=== PATIENT | male | born 1990 | race Caucasian/White ===

== ENCOUNTER 2017-01-10 01:51 | Emergency (ER) | payer BC ==
[2017-01-10] MEDS ORDERED: Ketorolac 30 MG/ML SDV IVPUSH ONE (02:06)
[2017-01-10] MEDS ORDERED: Sodium Chloride 0.9% 1,000 ML IV ONE (02:06)
[2017-01-10] MEDS ORDERED: Ondansetron 4 MG/2 ML SDV IVPUSH ONE (02:06)
--- NOTE | 2017-01-10 02:10 | EDM.PDOC ---
ED HPI GENERAL MEDICAL PROBLEM - General Chief Complaint: Back Pain or Injury Stated Complaint: BACK PAIN Time Seen by Provider: 01/10/17 02:02 - History of Present Illness INITIAL COMMENTS - FREE TEXT/NARRATIVE: HISTORY AND PHYSICAL: History of present illness: Patient is 26 male presents with concern of acute left flank pain patient associated nausea no vomiting he denies trauma denies history of similar prior denies history of urolithiasis UTI or back pain Review of systems: As per history of present illness and below otherwise all systems reviewed and negative. Past medical history: As per history of present illness and as reviewed below otherwise noncontributory. Surgical history: As per history of present illness and as reviewed below otherwise noncontributory. Social history: No reported history of drug or alcohol abuse. Family history: As per history of present illness and as reviewed below otherwise noncontributory. Physical exam: HEENT: Atraumatic, normocephalic, pupils reactive, negative for conjunctival pallor or scleral icterus, mucous membranes moist, throat clear, neck supple, nontender, trachea midline. Lungs: Clear to auscultation, breath sounds equal bilaterally, chest nontender. Heart: S1S2, regular, negative for clicks, rubs, or JVD. Abdomen: Soft, nondistended, nontender. Negative for masses or hepatosplenomegaly. Left sided costovertebral tenderness. Pelvis: Stable nontender. Genitourinary: Deferred. Rectal: Deferred. Extremities: Atraumatic, negative for cords or calf pain. Neurovascular unremarkable. Neuro: Awake, alert, oriented. Cranial nerves II through XII unremarkable. Cerebellum unremarkable. Motor and sensory unremarkable throughout. Exam nonfocal. Diagnostics: CBC CMP UA urine culture CT abdomen and pelvis Therapeutics: Will saline 1 L bolus Toradol 30 mg IV Zofran 4 mg IV Impression: #1 acute left flank pain Definitive disposition and diagnosis as appropriate pending reevaluation and review of above. back Pain Score (Numeric/FACES): 8 - Related Data Allergies Allergy/AdvReac Type Severity Reaction Status Date / Time No Known Allergies Allergy Verified 01/10/17 02:01 Home Meds: Home Meds Lisinopril/Hydrochlorothiazide [Lisinopril-Hctz 10-12.5 mg Tab] 1 tab PO DAILY 01/10/17 [History] Past Medical History - Past Health History Medical/Surgical History: Denies Medical/Surgical History Social & Family History - Alcohol Use Days Per Week of Alcohol Use: 0 - Recreational Drug Use Recreational Drug Use: No ED ROS GENERAL - Review of Systems Review Of Systems: ROS reveals no pertinent complaints other than HPI. ED EXAM, GENERAL - Physical Exam Exam: See Below (see dictation) Course - Vital Signs Last Recorded V/S: Last Vital Signs Temp 36.4 C 01/10/17 01:55 Pulse 113 H 01/10/17 01:55 Resp 18 01/10/17 01:55 BP 181/93 H 01/10/17 01:55 Pulse Ox 99 01/10/17 01:55 - Orders/Labs/Meds Orders: Active Orders 24 hr Category Date Time Status Abdomen Pelvis wo Cont [CT] Stat Exams 01/10/17 02:08 Taken CULTURE URINE [RM] Stat Lab 01/10/17 02:10 Received Labs: Laboratory Tests 01/10/17 01/10/17 01/10/17 Range/Units 02:10 02:25 02:25 WBC 7.87 (4.0-11.0) K/uL RBC 4.84 (4.50-5.90) M/uL Hgb 14.8 (13.0-17.0) g/dL Hct 44.0 (38.0-50.0) % MCV 90.9 (80.0-98.0) fL MCH 30.6 (27.0-32.0) pg MCHC 33.6 (31.0-37.0) g/dL RDW Std Deviation 39.7 (28.0-62.0) fl RDW Coeff of Guy 12 (11.0-15.0) % Plt Count 208 (150-400) K/uL MPV 12.20 H (7.40-12.00) fL Neut % (Auto) 67.9 (48.0-80.0) % Lymph % (Auto) 20.7 (16.0-40.0) % [place] % (Auto) 9.5 (0.0-15.0) % Eos % (Auto) 1.8 (0.0-7.0) % Baso % (Auto) 0.1 (0.0-1.5) % Neut # (Auto) 5.3 (1.4-5.7) K/uL Lymph # (Auto) 1.6 (0.6-2.4) K/uL [place] # (Auto) 0.8 (0.0-0.8) K/uL Eos # (Auto) 0.1 (0.0-0.7) K/uL Baso # (Auto) 0.0 (0.0-0.1) K/uL Sodium 139 (136-146) mmol/L Potassium 3.3 L (3.5-5.1) mmol/L Chloride 102 (98-110) mmol/L Carbon Dioxide 24 (21-31) mmol/L BUN 12 (6.0-23.0) mg/dL Creatinine 1.1 (0.6-1.5) mg/dL Est Cr Clr Drug Dosing TNP Estimated GFR (MDRD) > 60.0 ml/min Glucose 123 H (60-110) mg/dL Calcium 9.7 (8.8-10.8) mg/dL Total Bilirubin 0.8 (0.1-1.5) mg/dL AST 21 (5-40) IU/L ALT 27 (8-54) IU/L Alkaline Phosphatase 117 (40-150) Total Protein 7.3 (6.0-8.0) g/dL Albumin 4.1 (3.5-5.0) g/dL Globulin 3.2 (2.0-3.5) g/dL Albumin/Globulin Ratio 1.3 (1.3-2.8) Urine Color YELLOW Urine Appearance CLEAR Urine pH 6.0 (5.0-8.0) Ur Specific [place] 1.020 (1.001-1.035) Urine Protein NEGATIVE (NEGATIVE) mg/dL Urine Glucose (UA) NEGATIVE (NEGATIVE) mg/dL Urine Ketones NEGATIVE (NEGATIVE) mg/dL Urine Occult Blood NEGATIVE (NEGATIVE) Urine Nitrite NEGATIVE (NEGATIVE) Urine Bilirubin NEGATIVE (NEGATIVE) Urine Urobilinogen 0.2 (<2.0) EU/dL Ur Leukocyte Esterase NEGATIVE (NEGATIVE) Urine RBC NONE SEEN (0-2/HPF) Urine WBC 0-1 (0-5/HPF) Ur Epithelial Cells NOT SEEN (NONE-FEW) Urine Bacteria RARE (NEGATIVE) Meds: Medications Discontinued Medications Generic Name Dose Route Start Last Admin Trade Name Freq PRN Reason Stop Dose Admin Sodium Chloride 1,000 mls @ 999 mls/hr 01/10/17 02:06 01/10/17 02:26 Normal Saline IV 01/10/17 03:06 999 mls/hr STAT ONE Administration Ketorolac Tromethamine 30 mg 01/10/17 02:06 01/10/17 02:37 Toradol IVPUSH 01/10/17 02:07 30 mg ONETIME ONE Administration Ondansetron HCl 4 mg 01/10/17 02:06 01/10/17 02:35 Zofran IVPUSH 01/10/17 02:07 4 mg ONETIME ONE Administration Departure - Departure Time of Disposition: 03:42 Disposition: Home, Self-Care 01 Condition: Good Clinical Impression: Flank pain - Discharge Information Referrals: Jeevan Henry MD [Primary Care Provider] - Forms: ED Department Discharge Additional Instructions: The following information is given to patients seen in the emergency department who are being discharged to home. This information is to outline your options for follow-up care. We provide all patients seen in our emergency department with a follow-up referral. The need for follow-up, as well as the timing and circumstances, are variable depending upon the specifics of your emergency department visit. If you don't have a primary care physician on staff, we will provide you with a referral. We always advise you to contact your personal physician following an emergency department visit to inform them of the circumstance of the visit and for follow-up with them and/or the need for any referrals to a consulting specialist. The emergency department will also refer you to a specialist when appropriate. This referral assures that you have the opportunity for followup care with a specialist. All of these measure are taken in an effort to provide you with optimal care, which includes your followup. Under all circumstances we always encourage you to contact your private physician who remains a resource for coordinating your care. When calling for followup care, please make the office aware that this follow-up is from your recent emergency room visit. If for any reason you are refused follow-up, please contact the [facility] emergency department at and asked to speak to the emergency department charge nurse. Ultram as prescribed follow-up primary medical doctor wanted today's return as needed as discussed - My Orders Last 24 Hours: My Active Orders 01/10/17 02:08 Abdomen Pelvis wo Cont [CT] Stat 01/10/17 02:10 CULTURE URINE [RM] Stat - Assessment/Plan Last 24 Hours: My Active Orders 01/10/17 02:08 Abdomen Pelvis wo Cont [CT] Stat 01/10/17 02:10 CULTURE URINE [RM] Stat
[2017-01-10 03:03] LABS: CHLORIDE,CL 102 mmol/L (98-110); SODIUM,NA 139 mmol/L (136-146)
[2017-01-10 06:29] VITALS: BP 140/73
--- NOTE | 2017-01-10 15:29 | CT ---
EXAM DATE: 01/10/17 PATIENT'S AGE: 26 Patient: TALAT GREEN Facility: [place], [place] Site . Site : 1990 Study: CT Abdomen/Pelvis WO CONT [id number]/28/2017 3:09:46 AM Ordering Physician: Akil Rascon Final Report: INDICATION: Sudden onset of back pain. TECHNIQUE: CT abdomen and pelvis without contrast. COMPARISON: None. FINDINGS: Lower chest: Unremarkable. Liver: Unremarkable. Spleen: Unremarkable. Pancreas: Unremarkable. Gallbladder and bile ducts: Unremarkable. Kidneys: Unremarkable. No kidney or ureteral stones and no hydronephrosis. Adrenal glands: Unremarkable. GI tract: Unremarkable. Appendix is normal. No free air or free fluid. Vascular structures: Unremarkable. Lymph nodes: Unremarkable. Pelvic Organs: Unremarkable. Bones: No acute abnormality. IMPRESSION: No acute intra-abdominal or pelvic abnormality. Dictated by Raj Myers MD @ 01/10/2017 3:26:23 AM Dictated by: Raj Myers MD @ 01/10/2017 03:26:30 (Electronic Signature) Report Signed by Proxy. STAT[facility] HOSPITALGeovanna
== END 2017-01-10 03:50 | disposition home or self-care (01) ==
LOC: MW.ED 01:51
DX: R10.9 Unspecified abdominal pain (principal); Z79.899 Other long term (current) drug therapy
CPT/HCPCS: 36415; 74176; 80053; 81001; 85025; 87086; 96361; 96374; 96375; 99284; J1885; J2405; J7040

== ENCOUNTER 2020-04-01 07:20 | Emergency (ER) | payer SELFPAY ==
[2020-04-01] MEDS ORDERED: Sodium Chloride 0.9% 10 ML Syringe FLUSH PRN (07:48)
[2020-04-01] MEDS ORDERED: Sodium Chloride 0.9% 2.5 ML Syringe FLUSH PRN (07:48)
[2020-04-01] MEDS ORDERED: Lactated Ringers 1,000 ML IV ONE (07:48)
--- NOTE | 2020-04-01 07:50 | EDM.PDOC ---
ED HPI GENERAL MEDICAL PROBLEM - General Chief Complaint: Abdominal Pain Stated Complaint: ABDOMINAL PAIN, HIGH BLOOD PRESSURE Time Seen by Provider: 04/01/20 07:21 Source of Information: Reports: Patient, Old Records History Limitations: Reports: No Limitations - History of Present Illness INITIAL COMMENTS - FREE TEXT/NARRATIVE: This is a very pleasant 29-year-old male with a past medical history of hypertension presenting with abdominal pain. Patient reports a 4-day history of intermittent epigastric abdominal pain described as "cramping". This started last on the same day that his father . The patient is concerned that this may be due to stress. He states the pain is intermittent, does not radiate. He has never had this type of pain in the past. He denies any nausea, vomiting, hematemesis, fever, dysuria, urinary frequency, hematuria, diarrhea, or bloody stools. No prior history of gastritis, peptic ulcer disease, pancreatitis, liver disease, or biliary disease. Denies any chest discomfort or shortness of breath. ROS: A 10-point review of systems was negative, except as noted in the HPI (or in the ROS section of this note). Past medical history: Reviewed, no additional pertinent history. Surgical history: Reviewed in system, no additional pertinent history. Social history: Reviewed in system, no additional pertinent history. Family history: Reviewed in system, no additional pertinent history. PHYSICAL EXAM Vital signs reviewed. Nursing notes reviewed. Constitutional: Awake, alert, non-distressed. Head: Normocephalic, atraumatic. Eyes: EOMI, conjunctiva normal, no discharge, no scleral icterus. Ears, Nose, Throat: External ears and nose normal, moist oral mucosa. Cardiovascular: 2+ radial pulse, capillary refill less than 2 seconds. Pulmonary: normal work of breathing, no accessory muscle use. Abdomen/GI: Soft, mild epigastric tenderness, nondistended, no guarding or rigidity, no masses. Musculoskeletal: No deformities. Integumentary: Appropriate color for ethnicity, warm, dry, no pallor or jaundice, no rash. Neurologic: Alert, answering questions appropriately, normal speech, no facial droop, moving all extremities well. Psychiatric: Appropriate mood and affect, normal thought process. This patient was seen and evaluated during the 2019 SARS-CoV-2 novel coronavirus pandemic period. Community viral transmission is ongoing at time of this encounter and the emergency department is operating under pandemic response procedures. - Related Data Allergies Allergy/AdvReac Type Severity Reaction Status Date / Time No Known Allergies Allergy Verified 04/01/20 07:40 Home Meds: Home Meds Lisinopril/Hydrochlorothiazide [Lisinopril-Hctz 10-12.5 mg Tab] 1 tab PO DAILY 01/10/17 [History] Past Medical History - Past Health History Medical/Surgical History: Denies Medical/Surgical History Cardiovascular History: Reports: Hypertension Social & Family History - Family History Family Medical History: No Pertinent Family History ED ROS GENERAL - Review of Systems Review Of Systems: See Below ED EXAM, GI/ABD - Physical Exam Exam: See Below #1 Interpretation EKG Interpretation Comments: 12-Lead ECG Interpretation Acquired: 7:43 AM Rhythm: Sinus tachycardia Rate: 105 bpm Rachel: Normal Intervals: Normal Ectopy: None RV Strain: No obvious RV strain pattern. ST Segments/T-Waves: Very slight ST segment depression in leads I, 2, aVF, less than 1 mm, nondiagnostic. Acute Ischemic Changes: None apparent Interpretation: No STEMI Compared to November 2013, no marked change. Course - Vital Signs Text/Narrative:: Differential diagnosis includes but is not limited to: Gastritis, peptic ulcer disease, perforated viscus, pancreatitis, hepatitis, cholecystitis, biliary colic, less likely acute coronary syndrome, and many others. 818: Very mild epigastric tenderness. No peritoneal signs including guarding or rigidity. Low suspicion for perforation or intra-abdominal surgical emergency at this point. I am suspicious for gastritis. Will administer a GI cocktail an d famotidine, obtain some labs, and reevaluate. If the patient is pain-free, we may not need to obtain an imaging study. If his pain persists, I will consider an ultrasound or a CT scan. His twelve-lead EKG looks nonischemic 851: Patient's pain is improved but has not totally gone away. It is intermittent. We are going to obtain a right upper quadrant ultrasound study. 856: CBC shows normal cell lines. Normal electrolytes and renal function. Normal LFTs, negative troponin, normal lipase. Awaiting ultrasound. Patient resting comfortably. 949: Ultrasound of the abdomen demonstrates a small hyperechoic nodule most consistent with a benign cavernous hemangioma. Otherwise no acute findings. Patient is resting comfortably and is currently pain-free. I believe that his presentation is likely due to gastritis, although the patient is also been under a significant amount of stress lately. His work-up is negative and he is well- appearing and stable to discharge home. His abdomen is soft and nontender and his pain has totally subsided. We are going to instructed to take some [id number] Prilosec and Maalox max along with Tylenol. We will have him follow-up with a primary doctor in the next couple of days if symptoms have not improved. The patient did inadvertently receive a CT scan of the abdomen/pelvis with contrast that was intended for another patient. He was counseled about this error and about the dose of radiation that he received. An incident report was filed. Plan: Patient is stable to discharge home with outpatient primary care clinic follow-up. Strict emergency department return precautions were provided, patient indicated understanding. All questions were answered prior to departure. Discharged in good condition. Last Recorded V/S: Last Vital Signs Temp 35.9 C L 04/01/20 09:00 Pulse 90 04/01/20 09:00 Resp 18 04/01/20 09:00 BP 150/86 H 04/01/20 09:00 Pulse Ox 97 04/01/20 09:00 - Orders/Labs/Meds Orders: Active Orders 24 hr Category Date Time Status Cardiac Monitoring [RC] . DIRECTED Care 04/01/20 07:48 Active EKG Documentation Completion [RC] STAT Care 04/01/20 07:48 Active Pulse Oximetry [RC] ASDIRECTED Care 04/01/20 07:48 Active Sodium Chloride 0.9% [Saline Flush] Med 04/01/20 07:48 Active 10 ml FLUSH ASDIRECTED PRN Sodium Chloride 0.9% [Saline Flush] Med 04/01/20 07:48 Active 2.5 ml FLUSH ASDIRECTED PRN Saline Lock Insert [OM.PC] Stat Oth 04/01/20 07:48 Ordered Medication Orders Sodium Chloride (Saline Flush) 2.5 ml FLUSH ASDIRECTED PRN PRN Reason: Keep Vein Open Last Admin: 04/01/20 07:56 Dose: 2.5 ml Documented by: CONG Sodium Chloride (Saline Flush) 10 ml FLUSH ASDIRECTED PRN PRN Reason: Keep Vein Open Last Admin: 04/01/20 07:55 Dose: 10 ml Documented by: CONG Labs: Laboratory Tests 04/01/20 04/01/20 Range/Units 08:00 08:00 WBC 6.03 (4.0-11.0) K/uL RBC 5.38 (4.50-5.90) M/uL Hgb 16.2 (13.0-17.0) g/dL Hct 49.0 (38.0-50.0) % MCV 91.1 (80.0-98.0) fL MCH 30.1 (27.0-32.0) pg MCHC 33.1 (31.0-37.0) g/dL RDW Std Deviation 41.6 (28.0-62.0) fl RDW Coeff of Guy 12 (11.0-15.0) % Plt Count 233 (150-400) K/uL MPV 12.00 (7.40-12.00) fL Neut % (Auto) 63.0 (48.0-80.0) % Lymph % (Auto) 26.2 (16.0-40.0) % [place] % (Auto) 9.1 (0.0-15.0) % Eos % (Auto) 1.5 (0.0-7.0) % Baso % (Auto) 0.2 (0.0-1.5) % Neut # (Auto) 3.8 (1.4-5.7) K/uL Lymph # (Auto) 1.6 (0.6-2.4) K/uL [place] # (Auto) 0.6 (0.0-0.8) K/uL Eos # (Auto) 0.1 (0.0-0.7) K/uL Baso # (Auto) 0.0 (0.0-0.1) K/uL Nucleated RBC % 0.0 /100WBC Nucleated RBCs # 0 K/uL Sodium 139 (136-148) mmol/L Potassium 3.9 (3.5-5.1) mmol/L Chloride 102 (98-107) mmol/L Carbon Dioxide 29.5 (21.0-32.0) mmol/L BUN 9 (7.0-18.0) mg/dL Creatinine 1.1 (0.8-1.3) mg/dL Est Cr Clr Drug Dosing 94.31 mL/min Estimated GFR (MDRD) > 60.0 ml/min Glucose 111 H (74-106) mg/dL Calcium 9.2 (8.5-10.1) mg/dL Total Bilirubin 0.7 (0.2-1.0) mg/dL AST 14 L (15-37) IU/L ALT 28 (14-63) IU/L Alkaline Phosphatase 135 H (46-116) U/L Troponin I < 0.050 (0.000-0.056) ng/mL Total Protein 7.8 (6.4-8.2) g/dL Albumin 4.0 (3.4-5.0) g/dL Globulin 3.8 (2.6-4.0) g/dL Albumin/Globulin Ratio 1.1 (0.9-1.6) Lipase 104 (73-393) U/L Meds: Medications Generic Name Dose Route Start Last Admin Trade Name Freq PRN Reason Stop Dose Admin Sodium Chloride 2.5 ml 04/01/20 07:48 04/01/20 07:56 Saline Flush FLUSH 2.5 ml ASDIRECTED PRN Administration Keep Vein Open Sodium Chloride 10 ml 04/01/20 07:48 04/01/20 07:55 Saline Flush FLUSH 10 ml ASDIRECTED PRN Administration Keep Vein Open Discontinued Medications Generic Name Dose Route Start Last Admin Trade Name Freq PRN Reason Stop Dose Admin Al Hydroxide/Mg Hydroxide 15 0 ml 04/01/20 08:00 04/01/20 08:20 ml/ Lidocaine HCl 5 ml PO 04/01/20 08:01 20 each ONETIME ONE Administration Famotidine 20 mg 04/01/20 08:00 04/01/20 08:19 Pepcid IVPUSH 04/01/20 08:01 20 mg ONETIME ONE Administration Lactated Ringer's 1,000 mls @ 999 mls/hr 04/01/20 07:48 04/01/20 07:55 Ringers, Lactated IV 04/01/20 08:48 999 mls/hr .BOLUS ONE Administration Departure - Departure Time of Disposition: 09:50 Disposition: Home, Self-Care 01 Condition: Good Clinical Impression: Epigastric abdominal pain - Discharge Information *PRESCRIPTION DRUG MONITORING PROGRAM REVIEWED*: Not Applicable *COPY OF PRESCRIPTION DRUG MONITORING REPORT IN PATIENT DIRK: Not Applicable Instructions: Abdominal Pain, Adult, Pain Without a Known Cause Referrals: Jeevan Henry MD [Primary Care Provider] - 1 Week (As needed for follow-up of symptoms.) Forms: ED Department Discharge Additional Instructions: You were seen in the emergency department for abdominal pain. At this point your blood work, EKG, and ultrasound studies all look reassuring. I believe that your abdominal pain is most likely due to gastritis, condition where there can be excess stomach acid or potentially thinning of the lining of the stomach. This could certainly be caused by excessive stress, diet, and multiple other factors. I am comfortable letting you go home today. I do recommend [id number] Prilosec and Maalox max along with some Tylenol as needed to help treat your pain. I would give the Prilosec at least 2 weeks to be fully and affect. I would like for you to follow-up with your primary doctor in the next couple of days for reevaluation if you are not feeling better Warning signs to come back to the ER include: Worsening abdominal pain, bloody vomit or stools, fever, chills, chest pain, shortness of breath, or any other new or concerning symptoms that are worrisome to you. Please return the emergency department immediately if your symptoms worsen or if you feel worse. Thank you for choosing the [facility] emergency department in [place] for your medical needs today. It was a pleasure caring for you. The following information is given to patients seen in the emergency department who are being discharged. This information is to outline your options for follow-up care. We provide all patients seen in our emergency department with a follow-up referral. The need for follow-up, as well as the timing and circumstances, are variable depending upon the specifics of your emergency department visit. If you don't have a primary care physician on staff, we will provide you with a referral. We always advise you to contact your personal physician following an emergency department visit to inform them of the circumstance of the visit and for follow-up with them and/or the need for any referrals to a consulting specialist. The emergency department will also refer you to a specialist when appropriate. This referral assures that you have the opportunity for follow-up care with a specialist. All of these measure are taken in an effort to provide you with optimal care, which includes your follow-up. Under all circumstances we always encourage you to contact your private physician who remains a resource for coordinating your care. When calling for follow-up care, please make the office aware that this follow-up is from your recent emergency room visit. If for any reason you are refused follow-up, please contact the [facility] Emergency Department at and asked to speak to the emergency department charge nurse. If you do not have a primary care physician that is caring for you, you can contact these clinics below to set up an appointment to establish care: [facility] - Primary Care [address] [place] [address] [facility] [address] [place] [id number] Sepsis Event Note (ED) - Evaluation Sepsis Screening Result: No Definite Risk - Focused Exam Vital Signs: Vital Signs Temp Pulse Resp BP Pulse Ox 04/01/20 09:00 35.9 C L 90 18 150/86 H 97 04/01/20 08:38 35.9 C L 97 16 144/94 H 98 04/01/20 07:40 35.9 C L 116 H 18 162/96 H 99 - My Orders Last 24 Hours: My Active Orders 04/01/20 07:48 Cardiac Monitoring [RC] . DIRECTED EKG Documentation Completion [RC] STAT Pulse Oximetry [RC] ASDIRECTED Sodium Chloride 0.9% [Saline Flush] 10 ml FLUSH ASDIRECTED PRN Sodium Chloride 0.9% [Saline Flush] 2.5 ml FLUSH ASDIRECTED PRN Saline Lock Insert [OM.PC] Stat - Assessment/Plan Last 24 Hours: My Active Orders 04/01/20 07:48 Cardiac Monitoring [RC] . DIRECTED EKG Documentation Completion [RC] STAT Pulse Oximetry [RC] ASDIRECTED Sodium Chloride 0.9% [Saline Flush] 10 ml FLUSH ASDIRECTED PRN Sodium Chloride 0.9% [Saline Flush] 2.5 ml FLUSH ASDIRECTED PRN Saline Lock Insert [OM.PC] Stat
[2020-04-01] MEDS ORDERED: Alum Hydrox/Mag Hydrox/Simeth 15 ML, Lidocaine 2% 5 ML PO ONE ×2 (08:00)
[2020-04-01] MEDS ORDERED: Famotidine 20 MG/2 ML SDV IVPUSH ONE (08:00)
[2020-04-01 08:52] LABS: BLOOD UREA NITROGEN,BUN 9 mg/dL (7.0-18.0); CARBON DIOXIDE,CO2 29.5 mmol/L (21.0-32.0); CHLORIDE,CL 102 mmol/L (98-107); GLUCOSE RANDOM 111 mg/dL (74-106); LIPASE 104 U/L (73-393); POTASSIUM,K 3.9 mmol/L (3.5-5.1); SODIUM,NA 139 mmol/L (136-148)
--- NOTE | 2020-04-01 09:44 | US ---
INDICATION: Epigastric abdomen pain. TECHNIQUE: Ultrasound abdomen limited. Sonographic images of the right upper quadrant were obtained using coronel-scale and color Doppler images. COMPARISON: CT abdomen pelvis January 10, 2017. FINDINGS: Liver: Normal in size and echotexture. Single small hyperechoic nodule measuring 1 cm has characteristics most consistent with a benign cavernous hemangioma. No suspicious mass. Gallbladder: No stones or sludge. Normal wall thickness. No pericholecystic fluid. Common bile duct: 2 mm. Pancreas: Normal. Right kidney: Normal in size. Normal echotexture and cortex. No suspicious masses, stones, or hydronephrosis. Vasculature: Proximal abdominal aorta and IVC are normal. IMPRESSION: Unremarkable right upper quadrant ultrasound. No finding to explain epigastric pain. Dictated by Homero Quintanilla MD @ Apr 01 2020 9:40AM Signed by Dr. Homero Quintanilla @ Apr 01 2020 9:43AM
[2020-04-01 09:59] VITALS: BP 146/91; PULSE 89
== END 2020-04-01 10:03 | disposition home or self-care (01) ==
LOC: MW.ED 07:20
DX: R10.13 Epigastric pain (principal); R00.0 Tachycardia, unspecified; I10 Essential (primary) hypertension; Z79.899 Other long term (current) drug therapy
CPT/HCPCS: 76705; 80053; 83690; 84484; 85025; 93005; 96374; 99284; A9270; J3490; J7120; 93010; 99283

== ENCOUNTER 2020-07-16 00:01 | Observation (INO) | payer BC, OTHER ==
[2020-07-16] MEDS ORDERED: Dextrose 5%-Lactated Ringers 1,000 ML IV SCH ×2 (00:45→01:45)
[2020-07-16 00:54] LABS: BLOOD UREA NITROGEN,BUN 13 mg/dL (7.0-18.0); CARBON DIOXIDE,CO2 22.4 mmol/L (21.0-32.0); CHLORIDE,CL 97 mmol/L (98-107); GLUCOSE RANDOM 130 mg/dL (74-106); POTASSIUM,K 3.5 mmol/L (3.5-5.1); SODIUM,NA 132 mmol/L (136-148)
[2020-07-16] MEDS ORDERED: Alum Hydrox/Mag Hydrox/Simeth 15 ML, Lidocaine 2% 5 ML PO ONE ×2 (02:59)
[2020-07-16] MEDS ORDERED: LORazepam 2 MG/ML SDV IVPUSH ONE (03:13)
[2020-07-16] MEDS ORDERED: Lactated Ringers 1,000 ML IV SCH (04:15)
[2020-07-16] MEDS ORDERED: Lactated Ringers 1,000 ML IV STA (04:16)
--- NOTE | 2020-07-16 05:37 | EDM.PDOC ---
ED HPI GENERAL MEDICAL PROBLEM - General Chief Complaint: Gastrointestinal Problem Stated Complaint: FLU Time Seen by Provider: 07/16/20 00:10 - History of Present Illness INITIAL COMMENTS - FREE TEXT/NARRATIVE: CHIEF COMPLAINT(S): Diarrhea HISTORY OF PRESENT ILLNESS: This is a 29-year-old man without any significant past medical history who comes to the emergency department with a chief complaint of diarrhea. The patient states that for approximately 2 to 3 days now he has been experiencing watery diarrhea throughout the entire day. He states that he did have 2 episodes of vomiting which was nonbloody and nonbilious. He states that he does not have an appetite but has been drinking water. He denies any abdominal pain, fever or chills. He denies any cough. He denies any chest pain or shortness of breath. He states that there is no blood in his stool and there was no blood in his vomit. He states that both of his family members cousin and aunt had similar symptoms but his seems to be lasting longer. He denies any dysuria or hematuria. REVIEW OF SYSTEMS: Constitutional: Denies fever, chills. Eyes: Denies eye pain Ears, Nose, Mouth, & Throat: Denies earache Cardiovascular: Denies chest pain Respiratory: Denies shortness of breath Gastrointestinal: Positive for nonbloody diarrhea and vomiting. Denies hematochezia, hematemesis, melena, abdominal pain Genitourinary: Denies hematuria, dysuria Skin:Denies a rash MSK: Denies joint pain Neurological: Denies blurred vision Psychiatric: Denies depression PAST MEDICAL HISTORY: As per history of present illness and as reviewed below otherwise noncontributory. SURGICAL HISTORY: As per history of present illness and as reviewed below otherwise noncontributory. SOCIAL HISTORY: As per history of present illness and as reviewed below otherwise noncontributory. FAMILY HISTORY: As per history of present illness and as reviewed below otherwise noncontributory. EXAMINATION OF ORGAN SYSTEMS/BODY AREAS: Constitutional: Blood pressure was 154/99, heart rate 127, respiratory rate 18 with an oxygen saturation of 97% on room air. Temperature 37.8 orally General: Overall well-appearing man who is in no acute distress Psychiatric: Appropriate mood and affect. Eyes: No scleral icterus or conjunctival erythema ENMT: Dry mucous membranes. No pharyngeal erythema. Cardiovascular: Regular, rate, and rhythm. No gallops, murmurs, or rubs. Bilateral upper extremity pulses symmetric and intact. Mildly delayed capillary refill Respiratory: Lungs clear to auscultation bilaterally. No wheezes, rales, or rhonchi. Gastrointestinal: Soft, non-tender, non-distended. Normoactive bowel sounds no rebound or guarding. Genitourinary: No suprapubic tenderness Musculoskeletal: Normal range of motion. Skin: No lesions or abrasions. Neurological: Alert, GCS 15 MEDICAL DECISION MAKING AND COURSE IN THE ED WITH INTERPRETATION/REVIEW OF DIAGNOSTIC STUDIES: This is a 29-year-old and without any significant past medical history who comes to the emergency department with 2 to 3 days of watery diarrhea with positive sick contacts who had similar symptoms he was tachycardic and hypertensive. The patient does appear to be visibly dehydrated on exa mination. We will provide the patient with D5 lactated Ringer's. Will obtain screening labs including CBC and CMP. We will reevaluate for improvement of his heart rate after laboratory analysis. Laboratory: CBC reveals an elevated hemoglobin at 17.8 and heme hematocrit of 50.9 which is likely secondary to dehydration otherwise unremarkable. CMP reveals hyponatremia at 132, hypochloremia at 97, hyperglycemia at 130 otherwise unremarkable. After initial liter the patient's heart rate continues to be tachycardic at 115- 120. We will provide the patient with an additional 1 L of D5 LR. We will reevaluate. After the additional liter of D5 LR the patient continued to remain tachycardic. He did appear to be mildly anxious. Therefore we provided the patient with 1 mg of Ativan. We started the patient on maintenance fluids. After the Ativan and an additional liter the patient continued to remain tachycardic therefore I obtained an EKG. Time: 0258 Twelve-lead EKG interpreted by myself. Sinus tachycardia at a rate of 102 beats per minute. Normal axis. NE interval is 138 ms. QRS duration is [address] segments are normal without elevations or depressions. There is a T wave inver tammy in lead III no Q waves present. Hypertrophy not noted. No changes demonstrated from prior EKG dated 04/01/2020. Interpretation: Sinus tachycardia with T wave inversion in lead III. Given the persistent tachycardia I did discuss with him I had like to obtain a D-dimer and thyroid screening labs. He was amenable to this plan. Laboratory: D-dimer is negative. TSH and T4 are normal. Given the patient's persistent tachycardia I did discuss them I like to admit him to the hospital for dehydration and persistent tachycardia. He was amenable to this plan. I contacted Dr. Sellers who accepted the patient for admission. DISPOSITION: The patient was admitted to the hospital in stable condition CONDITION: Fair PROCEDURES: None FINAL IMPRESSION(S)/DIAGNOSES: 1. Acute diarrhea, likely viral 2. Acute tachycardia likely secondary to dehydration All Browning M.D. Ribs, abdomen Pain Score (Numeric/FACES): 2 - Related Data Allergies Allergy/AdvReac Type Severity Reaction Status Date / Time No Known Allergies Allergy Verified 07/16/20 00:30 Home Meds: Home Meds Lisinopril/Hydrochlorothiazide [Lisinopril-Hctz 10-12.5 mg Tab] 1 tab PO DAILY 01/10/17 [History] Past Medical History - Past Health History Medical/Surgical History: Denies Medical/Surgical History Cardiovascular History: Reports: Hypertension Psychiatric History: Reports: Anxiety - Infectious Disease History Infectious Disease History: Reports: None Social & Family History - Family History Family Medical History: No Pertinent Family History - Tobacco Use Tobacco Use Status *Q: Never Tobacco User Second Hand Smoke Exposure: No - Caffeine Use Caffeine Use: Reports: Soda - Recreational Drug Use Recreational Drug Use: No ED ROS GENERAL - Review of Systems Review Of Systems: See Below ED EXAM, GI/ABD - Physical Exam Exam: See Below Course - Vital Signs Last Recorded V/S: Last Vital Signs Temp 37.8 C 07/16/20 00:28 Pulse 113 H 07/16/20 05:11 Resp 16 07/16/20 05:11 BP 152/91 H 07/16/20 05:11 Pulse Ox 96 07/16/20 05:11 - Orders/Labs/Meds Orders: Active Orders 24 hr Category Date Time Status Admission Status [Patient Status] [ADT] Stat ADT 07/16/20 05:05 Active EKG 12 Lead [EKG Documentation Completion] [RC] STAT Care 07/16/20 03:00 Active CORONAVIRUS COVID-19 RONNELL [MOLEC] Stat Lab 07/16/20 05:05 Received Dextrose 5%-Lactated Ringers 1,000 ml Med 07/16/20 00:45 Active IV ASDIRECTED Dextrose 5%-Lactated Ringers 1,000 ml Med 07/16/20 01:45 Active IV ASDIRECTED Lactated Ringers [Ringers, Lactated] 1,000 ml Med 07/16/20 04:15 Active IV ASDIRECTED Lactated Ringers [Ringers, Lactated] 1,000 ml Med 07/16/20 04:16 Active IV NOW Medication Orders Dextrose/Lactated Ringer's (Dextrose 5%-Lactated Ringers) 1,000 mls @ 999 mls/hr IV ASDIRECTED MARIJA Last Admin: 07/16/20 00:38 Dose: 999 mls/hr Documented by: ALEJANDRA Dextrose/Lactated Ringer's (Dextrose 5%-Lactated Ringers) 1,000 mls @ 999 mls/hr IV ASDIRECTED MARIJA Last Admin: 07/16/20 01:43 Dose: 999 mls/hr Documented by: OZZIE Lactated Ringer's (Ringers, Lactated) 1,000 mls @ 150 mls/hr IV ASDIRECTED MARIJA Lactated Ringer's (Ringers, Lactated) 1,000 mls @ 150 mls/hr IV NOW STA Stop: 07/16/20 10:55 Last Admin: 07/16/20 04:22 Dose: 150 mls/hr Documented by: OZZIE Labs: Laboratory Tests 07/16/20 07/16/20 07/16/20 Range/Units 00:20 00:20 00:20 WBC 10.02 (4.0-11.0) K/uL RBC 5.80 (4.50-5.90) M/uL Hgb 17.8 H (13.0-17.0) g/dL Hct 50.9 H (38.0-50.0) % MCV 87.8 (80.0-98.0) fL MCH 30.7 (27.0-32.0) pg MCHC 35.0 (31.0-37.0) g/dL RDW Std Deviation 39.7 (28.0-62.0) fl RDW Coeff of Guy 12 (11.0-15.0) % Plt Count 243 (150-400) K/uL MPV 11.40 (7.40-12.00) fL Neut % (Auto) 77.5 (48.0-80.0) % Lymph % (Auto) 12.6 L (16.0-40.0) % [place] % (Auto) 9.1 (0.0-15.0) % Eos % (Auto) 0.4 (0.0-7.0) % Baso % (Auto) 0.4 (0.0-1.5) % Neut # (Auto) 7.8 H (1.4-5.7) K/uL Lymph # (Auto) 1.3 (0.6-2.4) K/uL [place] # (Auto) 0.9 H (0.0-0.8) K/uL Eos # (Auto) 0.0 (0.0-0.7) K/uL Baso # (Auto) 0.0 (0.0-0.1) K/uL D-Dimer, Quantitative 0.28 (0.0-0.50) mg/L FEU Sodium 132 L (136-148) mmol/L Potassium 3.5 (3.5-5.1) mmol/L Chloride 97 L (98-107) mmol/L Carbon Dioxide 22.4 (21.0-32.0) mmol/L BUN 13 (7.0-18.0) mg/dL Creatinine 1.3 (0.8-1.3) mg/dL Est Cr Clr Drug Dosing 79.80 mL/min Estimated GFR (MDRD) > 60.0 ml/min Glucose 130 H (74-106) mg/dL Calcium 8.7 (8.5-10.1) mg/dL Magnesium 1.8 (1.8-2.4) mg/dL Total Bilirubin 0.7 (0.2-1.0) mg/dL AST 19 (15-37) IU/L ALT 49 (14-63) IU/L Alkaline Phosphatase 132 H (46-116) U/L Total Protein 8.2 (6.4-8.2) g/dL Albumin 3.9 (3.4-5.0) g/dL Globulin 4.3 H (2.6-4.0) g/dL Albumin/Globulin Ratio 0.9 (0.9-1.6) Free T4 (0.76-1.46) ng/dL TSH 3rd Generation (0.36-3.74) uIU/mL 07/16/20 Range/Units 00:20 WBC (4.0-11.0) K/uL RBC (4.50-5.90) M/uL Hgb (13.0-17.0) g/dL Hct (38.0-50.0) % MCV (80.0-98.0) fL MCH (27.0-32.0) pg MCHC (31.0-37.0) g/dL RDW Std Deviation (28.0-62.0) fl RDW Coeff of Guy (11.0-15.0) % Plt Count (150-400) K/uL MPV (7.40-12.00) fL Neut % (Auto) (48.0-80.0) % Lymph % (Auto) (16.0-40.0) % [place] % (Auto) (0.0-15.0) % Eos % (Auto) (0.0-7.0) % Baso % (Auto) (0.0-1.5) % Neut # (Auto) (1.4-5.7) K/uL Lymph # (Auto) (0.6-2.4) K/uL [place] # (Auto) (0.0-0.8) K/uL Eos # (Auto) (0.0-0.7) K/uL Baso # (Auto) (0.0-0.1) K/uL D-Dimer, Quantitative (0.0-0.50) mg/L FEU Sodium (136-148) mmol/L Potassium (3.5-5.1) mmol/L Chloride (98-107) mmol/L Carbon Dioxide (21.0-32.0) mmol/L BUN (7.0-18.0) mg/dL Creatinine (0.8-1.3) mg/dL Est Cr Clr Drug Dosing mL/min Estimated GFR (MDRD) ml/min Glucose (74-106) mg/dL Calcium (8.5-10.1) mg/dL Magnesium (1.8-2.4) mg/dL Total Bilirubin (0.2-1.0) mg/dL AST (15-37) IU/L ALT (14-63) IU/L Alkaline Phosphatase (46-116) U/L Total Protein (6.4-8.2) g/dL Albumin (3.4-5.0) g/dL Globulin (2.6-4.0) g/dL Albumin/Globulin Ratio (0.9-1.6) Free T4 1.20 (0.76-1.46) ng/dL TSH 3rd Generation 2.44 (0.36-3.74) uIU/mL Meds: Medications Generic Name Dose Route Start Last Admin Trade Name Damonq PRN Reason Stop Dose Admin Dextrose/Lactated Ringer's 1,000 mls @ 999 mls/hr 07/16/20 00:45 07/16/20 00:38 Dextrose 5%-Lactated Ringers IV 999 mls/hr ASDIRECTED MARIJA Administration Dextrose/Lactated Ringer's 1,000 mls @ 999 mls/hr 07/16/20 01:45 07/16/20 01:43 Dextrose 5%-Lactated Ringers IV 999 mls/hr ASDIRECTED MARIJA Administration Lactated Ringer's 1,000 mls @ 150 mls/hr 07/16/20 04:15 Ringers, Lactated IV ASDIRECTED MARIJA Lactated Ringer's 1,000 mls @ 150 mls/hr 07/16/20 04:16 07/16/20 04:22 Ringers, Lactated IV 07/16/20 10:55 150 mls/hr NOW STA Administration Discontinued Medications Generic Name Dose Route Start Last Admin Trade Name Chad PRN Reason Stop Dose Admin Al Hydroxide/Mg Hydroxide 15 0 ml 07/16/20 02:59 07/16/20 03:10 ml/ Lidocaine HCl 5 ml PO 07/16/20 03:00 1 each ONETIME ONE Administration Lorazepam 1 mg 07/16/20 03:13 07/16/20 03:19 Ativan IVPUSH 07/16/20 03:14 1 mg ONETIME ONE Administration Departure - Departure Time of Disposition: 05:05 Disposition: Refer to Observation Condition: Fair Clinical Impression: Tachycardia Diarrhea Qualifiers: Diarrhea type: unspecified type Qualified Code(s): R19.7 - Diarrhea, unspecified - Discharge Information Referrals: Jeevan Henry MD [Primary Care Provider] - Sepsis Event Note (ED) - Evaluation Sepsis Screening Result: Possible Sepsis Risk - Focused Exam Vital Signs: Vital Signs Temp Pulse Resp BP Pulse Ox 07/16/20 05:11 113 H 16 152/91 H 96 07/16/20 04:14 116 H 16 146/88 H 94 L 07/16/20 03:39 121 H 18 152/98 H 96 07/16/20 03:14 126 H 20 164/101 H 98 07/16/20 02:10 108 H 18 97 07/16/20 01:12 106 H 18 154/99 H 96 07/16/20 00:28 37.8 C 127 H 18 154/99 H 97 - My Orders Last 24 Hours: My Active Orders 07/16/20 00:45 Dextrose 5%-Lactated Ringers 1,000 ml IV ASDIRECTED 07/16/20 01:45 Dextrose 5%-Lactated Ringers 1,000 ml IV ASDIRECTED 07/16/20 03:00 EKG 12 Lead [EKG Documentation Completion] [RC] STAT 07/16/20 04:15 Lactated Ringers [Ringers, Lactated] 1,000 ml IV ASDIRECTED 07/16/20 04:16 Lactated Ringers [Ringers, Lactated] 1,000 ml IV NOW 07/16/20 05:05 Admission Status [Patient Status] [ADT] Stat CORONAVIRUS COVID-19 RONNELL [MOLEC] Stat - Assessment/Plan Last 24 Hours: My Active Orders 07/16/20 00:45 Dextrose 5%-Lactated Ringers 1,000 ml IV ASDIRECTED 07/16/20 01:45 Dextrose 5%-Lactated Ringers 1,000 ml IV ASDIRECTED 07/16/20 03:00 EKG 12 Lead [EKG Documentation Completion] [RC] STAT 07/16/20 04:15 Lactated Ringers [Ringers, Lactated] 1,000 ml IV ASDIRECTED 07/16/20 04:16 Lactated Ringers [Ringers, Lactated] 1,000 ml IV NOW 07/16/20 05:05 Admission Status [Patient Status] [ADT] Stat CORONAVIRUS COVID-19 RONNELL [MOLEC] Stat
[2020-07-16] MEDS ORDERED: Ondansetron 4 MG/2 ML SDV IVPUSH PRN (07:13)
[2020-07-16] MEDS ORDERED: Acetaminophen 325 MG Tab PO PRN (07:13)
--- NOTE | 2020-07-16 08:12 | PCM.HP.2 ---
H&P History of Present Illness - General Date of Service: 07/16/20 Admit Problem/Dx: Admission Diagnosis/Problem Admission Diagnosis/Problem Tachycardia Source of Information: Patient History Limitations: Reports: No Limitations - History of Present Illness Initial Comments - Free Text/Narative: 29-year-old male presents complaining of diarrhea for the past 3-4 days. He has a PMH of HTN. Patient reports having at least 10 watery stools daily for the past 3-4 days. He reports being around relatives with the same symptoms. He also had associated nausea and vomiting. He denies having any fevers, chills, sore throat, cough, SOB, chest pain, abdominal pain, bloody stool, blood in urine, numbness or tingling in extremities. In the ER, Hgb 17.8, sodium 132, d-dimer normal, TSH normal and COVID-19 test negative. Patient was IV D5-LR x 2 L bolus and ativan. He was noted to be tachycardic. EKG showed sinus tachycardia with T-wave inversion in lead III. He remained tachycardic after 2 L bolus and was admitted for further evaluation and treatment. Ribs, abdomen Pain Score (Numeric/FACES): 2 - Related Data Allergies/Adverse Reactions: Allergies Allergy/AdvReac Type Severity Reaction Status Date / Time No Known Allergies Allergy Verified 07/16/20 08:33 Home Medications: Home Meds Lisinopril/Hydrochlorothiazide [Lisinopril-Hctz 10-12.5 mg Tab] 10 - 12.5 mg PO DAILY 01/10/17 [History] Past Medical History - Past Health History Medical/Surgical History: Denies Medical/Surgical History Cardiovascular History: Reports: Hypertension Psychiatric History: Reports: Anxiety - Infectious Disease History Infectious Disease History: Reports: None Social & Family History - Family History Family Medical History: No Pertinent Family History - Tobacco Use Tobacco Use Status *Q: Never Tobacco User Second Hand Smoke Exposure: No - Caffeine Use Caffeine Use: Reports: Soda - Recreational Drug Use Recreational Drug Use: No H&P Review of Systems - Review of Systems: Review Of Systems: Comprehensive ROS is negative, except as noted in HPI. Exam - Exam Exam: See Below - Vital Signs Vital Signs: Last Vital Signs Temp 37.8 C 07/16/20 00:28 Pulse 111 H 07/16/20 06:43 Resp 20 07/16/20 06:43 BP 132/74 07/16/20 06:43 Pulse Ox 96 07/16/20 06:43 Weight: 99.79 kg - Exam General: Alert, Oriented, Cooperative, Other (NAD) HEENT: Conjunctiva Clear, EOMI, Hearing Intact, Pupils Equal, Pupils Reactive Neck: Supple, Trachea Midline Lungs: Clear to Auscultation, Normal Respiratory Effort Cardiovascular: Regular Rate, Regular Rhythm GI/Abdominal Exam: Normal Bowel Sounds, Soft, Non-Tender, No Distention Extremities: Normal Inspection, No Pedal Edema Peripheral Pulses: 2+: Radial (L), Radial (R) Skin: Warm, Dry, Intact Neurological: Cranial Nerves Intact, Strength Equal Bilateral, Normal Speech, Normal Tone Neuro Extensive - Mental Status: Alert, Oriented x3, Normal Mood/Affect Psychiatric: Alert, Normal Affect, Normal Mood - Patient Data Lab Results Last 24 hrs: Laboratory Results - last 24 hr 07/16/20 07/16/20 07/16/20 Range/Units 00:20 00:20 00:20 WBC 10.02 (4.0-11.0) K/uL RBC 5.80 (4.50-5.90) M/uL Hgb 17.8 H (13.0-17.0) g/dL Hct 50.9 H (38.0-50.0) % MCV 87.8 (80.0-98.0) fL MCH 30.7 (27.0-32.0) pg MCHC 35.0 (31.0-37.0) g/dL RDW Std Deviation 39.7 (28.0-62.0) fl RDW Coeff of Guy 12 (11.0-15.0) % Plt Count 243 (150-400) K/uL MPV 11.40 (7.40-12.00) fL Neut % (Auto) 77.5 (48.0-80.0) % Lymph % (Auto) 12.6 L (16.0-40.0) % [place] % (Auto) 9.1 (0.0-15.0) % Eos % (Auto) 0.4 (0.0-7.0) % Baso % (Auto) 0.4 (0.0-1.5) % Neut # (Auto) 7.8 H (1.4-5.7) K/uL Lymph # (Auto) 1.3 (0.6-2.4) K/uL [place] # (Auto) 0.9 H (0.0-0.8) K/uL Eos # (Auto) 0.0 (0.0-0.7) K/uL Baso # (Auto) 0.0 (0.0-0.1) K/uL D-Dimer, Quantitative 0.28 (0.0-0.50) mg/L FEU Sodium 132 L (136-148) mmol/L Potassium 3.5 (3.5-5.1) mmol/L Chloride 97 L (98-107) mmol/L Carbon Dioxide 22.4 (21.0-32.0) mmol/L BUN 13 (7.0-18.0) mg/dL Creatinine 1.3 (0.8-1.3) mg/dL Est Cr Clr Drug Dosing 79.80 mL/min Estimated GFR (MDRD) > 60.0 ml/min Glucose 130 H (74-106) mg/dL Calcium 8.7 (8.5-10.1) mg/dL Magnesium 1.8 (1.8-2.4) mg/dL Total Bilirubin 0.7 (0.2-1.0) mg/dL AST 19 (15-37) IU/L ALT 49 (14-63) IU/L Alkaline Phosphatase 132 H (46-116) U/L Total Protein 8.2 (6.4-8.2) g/dL Albumin 3.9 (3.4-5.0) g/dL Globulin 4.3 H (2.6-4.0) g/dL Albumin/Globulin Ratio 0.9 (0.9-1.6) Free T4 (0.76-1.46) ng/dL TSH 3rd Generation (0.36-3.74) uIU/mL SARS-CoV-2 RNA (RONNELL) (NEGATIVE) 07/16/20 07/16/20 Range/Units 00:20 05:05 WBC (4.0-11.0) K/uL RBC (4.50-5.90) M/uL Hgb (13.0-17.0) g/dL Hct (38.0-50.0) % MCV (80.0-98.0) fL MCH (27.0-32.0) pg MCHC (31.0-37.0) g/dL RDW Std Deviation (28.0-62.0) fl RDW Coeff of Guy (11.0-15.0) % Plt Count (150-400) K/uL MPV (7.40-12.00) fL Neut % (Auto) (48.0-80.0) % Lymph % (Auto) (16.0-40.0) % [place] % (Auto) (0.0-15.0) % Eos % (Auto) (0.0-7.0) % Baso % (Auto) (0.0-1.5) % Neut # (Auto) (1.4-5.7) K/uL Lymph # (Auto) (0.6-2.4) K/uL [place] # (Auto) (0.0-0.8) K/uL Eos # (Auto) (0.0-0.7) K/uL Baso # (Auto) (0.0-0.1) K/uL D-Dimer, Quantitative (0.0-0.50) mg/L FEU Sodium (136-148) mmol/L Potassium (3.5-5.1) mmol/L Chloride (98-107) mmol/L Carbon Dioxide (21.0-32.0) mmol/L BUN (7.0-18.0) mg/dL Creatinine (0.8-1.3) mg/dL Est Cr Clr Drug Dosing mL/min Estimated GFR (MDRD) ml/min Glucose (74-106) mg/dL Calcium (8.5-10.1) mg/dL Magnesium (1.8-2.4) mg/dL Total Bilirubin (0.2-1.0) mg/dL AST (15-37) IU/L ALT (14-63) IU/L Alkaline Phosphatase (46-116) U/L Total Protein (6.4-8.2) g/dL Albumin (3.4-5.0) g/dL Globulin (2.6-4.0) g/dL Albumin/Globulin Ratio (0.9-1.6) Free T4 1.20 (0.76-1.46) ng/dL TSH 3rd Generation 2.44 (0.36-3.74) uIU/mL SARS-CoV-2 RNA (RONNELL) NEGATIVE (NEGATIVE) Result Diagrams: 07/16/20 00:20 07/16/20 00:20 Sepsis Event Note - Evaluation Sepsis Screening Result: Possible Sepsis Risk - Focused Exam Vital Signs: Vital Signs Temp Pulse Resp BP Pulse Ox 07/16/20 06:43 111 H 20 132/74 96 07/16/20 05:45 116 H 14 138/97 H 95 07/16/20 05:11 113 H 16 152/91 H 96 07/16/20 04:14 116 H 16 146/88 H 94 L 07/16/20 03:39 121 H 18 152/98 H 96 07/16/20 03:14 126 H 20 164/101 H 98 07/16/20 02:10 108 H 18 97 07/16/20 01:12 106 H 18 154/99 H 96 07/16/20 00:28 37.8 C 127 H 18 154/99 H 97 - Problem List (1) Dehydration SNOMED Code(s): 75520946 ICD Code: E86.0 - DEHYDRATION Status: Acute Current Visit: Yes (2) Diarrhea SNOMED Code(s): 06821362 ICD Code: R19.7 - DIARRHEA, UNSPECIFIED Status: Acute Current Visit: Yes Qualifiers: Diarrhea type: unspecified type Qualified Code(s): R19.7 - Diarrhea, unspecified (3) HTN (hypertension) SNOMED Code(s): 73512946 ICD Code: I10 - ESSENTIAL (PRIMARY) HYPERTENSION Status: Acute Current Visit: Yes (4) Tachycardia SNOMED Code(s): 0750727 ICD Code: R00.0 - TACHYCARDIA, UNSPECIFIED Status: Acute Current Visit: Yes Problem List Initiated/Reviewed/Updated: Yes Orders Last 24hrs: Active Orders 24 hr Category Date Time Status Admission Status [Patient Status] [ADT] Stat ADT 07/16/20 05:05 Active EKG 12 Lead [EKG Documentation Completion] [RC] STAT Care 07/16/20 03:00 Active Oxygen Therapy [RC] PRN Care 07/16/20 07:13 Active Telemetry Monitoring [Cardiac Monitoring] [RC] . Care 07/16/20 07:18 Active DIRECTED Up ad Annette [RC] ASDIRECTED Care 07/16/20 07:13 Active VTE/DVT Education [RC] PER UNIT ROUTINE Care 07/16/20 07:13 Active Vital Signs [RC] Q4H Care 07/16/20 07:13 Active Clear Liquid Diet [DIET] Diet 07/16/20 Breakfast Active C DIFFICILE AG/TOXIN W/REFLEX [RM] Urgent Lab 07/16/20 07:16 Ordered CBC WITH AUTO DIFF [HEME] AM Lab 07/17/20 05:11 Ordered COMPREHENSIVE METABOLIC PN,CMP [CHEM] AM Lab 07/17/20 05:11 Ordered STOOL CULTURE/SHIGA TOXIN [MREF] Urgent Lab 07/16/20 07:16 Ordered Acetaminophen [TylenoL] Med 07/16/20 07:13 Active 650 mg PO Q4H PRN Dextrose 5%-Lactated Ringers 1,000 ml Med 07/16/20 00:45 Active IV ASDIRECTED Dextrose 5%-Lactated Ringers 1,000 ml Med 07/16/20 01:45 Active IV ASDIRECTED Enoxaparin [Lovenox] Med 07/16/20 08:00 Active 40 mg SUBCUT Q24H Lactated Ringers [Ringers, Lactated] 1,000 ml Med 07/16/20 07:15 Active IV ASDIRECTED Lactated Ringers [Ringers, Lactated] 1,000 ml Med 07/16/20 04:16 Active IV NOW Ondansetron [Zofran] Med 07/16/20 07:13 Active 4 mg IVPUSH Q4H PRN Resuscitation Status Routine Resus Stat 07/16/20 07:13 Ordered Medication Orders Acetaminophen (Tylenol) 650 mg PO Q4H PRN PRN Reason: Pain (Mild 1-3)/fever Enoxaparin Sodium (Lovenox) 40 mg SUBCUT Q24H [facility] Dextrose/Lactated Ringer's (Dextrose 5%-Lactated Ringers) 1,000 mls @ 999 mls/hr IV ASDIRECTED [facility] Last Admin: 07/16/20 00:38 Dose: 999 mls/hr Documented by: ALEJANDRA Dextrose/Lactated Ringer's (Dextrose 5%-Lactated Ringers) 1,000 mls @ 999 mls/hr IV ASDIRECTED [facility] Last Admin: 07/16/20 01:43 Dose: 999 mls/hr Documented by: MURDNIC Lactated Ringer's (Ringers, Lactated) 1,000 mls @ 150 mls/hr IV NOW STA Stop: 07/16/20 10:55 Last Admin: 07/16/20 04:22 Dose: 150 mls/hr Documented by: MURDNIC Lactated Ringer's (Ringers, Lactated) 1,000 mls @ 150 mls/hr IV ASDIRECTED [facility] Ondansetron HCl (Zofran) 4 mg IVPUSH Q4H PRN PRN Reason: Nausea Assessment/Plan Comment:: Assessment and Plan: 1. Dehydration secondary to diarrhea: - Admit to med/surg. Will start IV LR's @ 125 cc/hr. Patient received 2 L IV fluids bolus in ER. C diff test negative. Will order stool cultures. Clear liquid diet for now. Strict I/O's. Will recheck BMP this afternoon. 2. Sinus tachycardia likely secondary to dehydration: - Patient on telemetry. 3. HTN: - Continue home medications. 4. DVT prophylaxis: - Lovenox 40 mg subcut qd.
[2020-07-16] MEDS: Enoxaparin 40 MG/0.4 ML Syringe SUBCUT SCH (08:44)
[2020-07-16] MEDS: Lactated Ringers 1,000 ML IV SCH ×3 (12:51→20:01)
[2020-07-16] MEDS: Lisinopril/Hydrochlorothiazide 10-12.5 MG Tab PO SCH (14:26)
[2020-07-16 16:24] LABS: BLOOD UREA NITROGEN,BUN 8 mg/dL (7.0-18.0); CARBON DIOXIDE,CO2 24.5 mmol/L (21.0-32.0); CHLORIDE,CL 104 mmol/L (98-107); GLUCOSE RANDOM 87 mg/dL (74-106); POTASSIUM,K 3.4 mmol/L (3.5-5.1); SODIUM,NA 142 mmol/L (136-148)
[2020-07-16] MEDS ORDERED: Potassium Chloride 20 MEQ Tab.ER PO ONE (17:00)
[2020-07-17] MEDS: Lactated Ringers 1,000 ML IV SCH ×3 (02:35→16:17)
[2020-07-17 07:00] LABS: BLOOD UREA NITROGEN,BUN 6 mg/dL (7.0-18.0); CHLORIDE,CL 109 mmol/L (98-107); GLUCOSE RANDOM 92 mg/dL (74-106); POTASSIUM,K 4.1 mmol/L (3.5-5.1); SODIUM,NA 145 mmol/L (136-148)
--- NOTE | 2020-07-17 08:50 | PCM.PN ---
<Casey Leahy M - Last Filed: 07/17/20 11:27> - General Info Date of Service: 07/17/20 Subjective Update: Reports having 4-5 bowel movements yesterday which is improved. Tolerating CLD and would like to try advancing diet. No fevers, chills, SOB, chest pain, nausea or vomiting overnight. - Patient Data Vitals - Most Recent: Last Vital Signs Temp 36.2 C 07/17/20 07:29 Pulse 81 07/17/20 07:29 Resp 15 07/17/20 07:29 BP 143/80 H 07/17/20 07:29 Pulse Ox 96 07/17/20 07:29 Weight - Most Recent: 99.79 kg I&O - Last 24 Hours: Intake & Output 07/16/20 07/17/20 07/17/20 22:59 06:59 14:59 Intake Total 3443 3719 Output Total 1250 1200 Balance 2193 4669 Lab Results Last 24 Hours: Laboratory Results - last 24 hr 07/16/20 07/16/20 07/17/20 Range/Units 12:16 15:50 05:00 WBC 5.69 (4.0-11.0) K/uL RBC 4.60 (4.50-5.90) M/uL Hgb 14.0 (13.0-17.0) g/dL Hct 42.5 (38.0-50.0) % MCV 92.4 (80.0-98.0) fL MCH 30.4 (27.0-32.0) pg MCHC 32.9 (31.0-37.0) g/dL RDW Std Deviation 43.2 (28.0-62.0) fl RDW Coeff of Guy 13 (11.0-15.0) % Plt Count 196 (150-400) K/uL MPV 11.90 (7.40-12.00) fL Neut % (Auto) 47.5 L (48.0-80.0) % Lymph % (Auto) 34.4 (16.0-40.0) % Austin % (Auto) 15.8 H (0.0-15.0) % Eos % (Auto) 1.9 (0.0-7.0) % Baso % (Auto) 0.4 (0.0-1.5) % Neut # (Auto) 2.7 (1.4-5.7) K/uL Lymph # (Auto) 2.0 (0.6-2.4) K/uL Austin # (Auto) 0.9 H (0.0-0.8) K/uL Eos # (Auto) 0.1 (0.0-0.7) K/uL Baso # (Auto) 0.0 (0.0-0.1) K/uL Nucleated RBC % 0.0 /100WBC Nucleated RBCs # 0 K/uL Sodium 142 (136-148) mmol/L Potassium 3.4 L (3.5-5.1) mmol/L Chloride 104 (98-107) mmol/L Carbon Dioxide 24.5 (21.0-32.0) mmol/L BUN 8 (7.0-18.0) mg/dL Creatinine 1.1 (0.8-1.3) mg/dL Est Cr Clr Drug Dosing 94.31 mL/min Estimated GFR (MDRD) > 60.0 ml/min Glucose 87 (74-106) mg/dL Calcium 8.3 L (8.5-10.1) mg/dL Magnesium 1.8 (1.8-2.4) mg/dL Total Bilirubin (0.2-1.0) mg/dL AST (15-37) IU/L ALT (14-63) IU/L Alkaline Phosphatase (46-116) U/L Total Protein (6.4-8.2) g/dL Albumin (3.4-5.0) g/dL Globulin (2.6-4.0) g/dL Albumin/Globulin Ratio (0.9-1.6) 07/17/20 Range/Units 05:00 WBC (4.0-11.0) K/uL RBC (4.50-5.90) M/uL Hgb (13.0-17.0) g/dL Hct (38.0-50.0) % MCV (80.0-98.0) fL MCH (27.0-32.0) pg MCHC (31.0-37.0) g/dL RDW Std Deviation (28.0-62.0) fl RDW Coeff of Guy (11.0-15.0) % Plt Count (150-400) K/uL MPV (7.40-12.00) fL Neut % (Auto) (48.0-80.0) % Lymph % (Auto) (16.0-40.0) % Austin % (Auto) (0.0-15.0) % Eos % (Auto) (0.0-7.0) % Baso % (Auto) (0.0-1.5) % Neut # (Auto) (1.4-5.7) K/uL Lymph # (Auto) (0.6-2.4) K/uL Austin # (Auto) (0.0-0.8) K/uL Eos # (Auto) (0.0-0.7) K/uL Baso # (Auto) (0.0-0.1) K/uL Nucleated RBC % /100WBC Nucleated RBCs # K/uL Sodium 145 (136-148) mmol/L Potassium 4.1 (3.5-5.1) mmol/L Chloride 109 H (98-107) mmol/L Carbon Dioxide 28.0 (21.0-32.0) mmol/L BUN 6 L (7.0-18.0) mg/dL Creatinine 1.1 (0.8-1.3) mg/dL Est Cr Clr Drug Dosing 94.31 mL/min Estimated GFR (MDRD) > 60.0 ml/min Glucose 92 (74-106) mg/dL Calcium 8.6 (8.5-10.1) mg/dL Magnesium 1.8 (1.8-2.4) mg/dL Total Bilirubin 0.5 (0.2-1.0) mg/dL AST 16 (15-37) IU/L ALT 33 (14-63) IU/L Alkaline Phosphatase 89 (46-116) U/L Total Protein 6.0 L (6.4-8.2) g/dL Albumin 2.8 L (3.4-5.0) g/dL Globulin 3.2 (2.6-4.0) g/dL Albumin/Globulin Ratio 0.9 (0.9-1.6) Hema Results Last 24 Hours: Microbiology 07/16/20 10:10 C. difficile Antigen & Toxins A,B - Final Stool / Feces Med Orders - Current: Current Medications Acetaminophen (Tylenol) 650 mg PO Q4H PRN PRN Reason: Pain (Mild 1-3)/fever Last Admin: 07/16/20 19:58 Dose: 650 mg Documented by: Enoxaparin Sodium (Lovenox) 40 mg SUBCUT Q24H [facility] Last Admin: 07/16/20 08:44 Dose: 40 mg Documented by: Lisinopril/HCTZ (Lisinopril-Hctz 10-12.5 Mg) 1 tab PO DAILY [facility] Last Admin: 07/16/20 14:26 Dose: 1 tab Documented by: Lactated Ringer's (Ringers, Lactated) 1,000 mls @ 150 [facility] Last Admin: 07/17/20 02:35 Dose: 150 mls/hr Documented by: Ondansetron HCl (Zofran) 4 mg IVPUSH Q4H PRN PRN Reason: Nausea Discontinued Medications Al Hydroxide/Mg Hydroxide 15 (ml/ Lidocaine HCl 5 ml) 0 ml PO ONETIME ONE Stop: 07/16/20 03:00 Last Admin: 07/16/20 03:10 Dose: 1 each Documented by: Dextrose/Lactated Ringer's (Dextrose 5%-Lactated Ringers) 1,000 mls @ 999 [facility] Last Admin: 07/16/20 00:38 Dose: 999 mls/hr Documented by: Dextrose/Lactated Ringer's (Dextrose 5%-Lactated Ringers) 1,000 mls @ 999 [facility] Last Admin: 07/16/20 01:43 Dose: 999 mls/hr Documented by: Lactated Ringer's (Ringers, Lactated) 1,000 mls @ 150 [facility] Lactated Ringer's (Ringers, Lactated) 1,000 mls @ 150 mls/hr IV NOW STA Stop: 07/16/20 10:55 Last Admin: 07/16/20 04:22 Dose: 150 mls/hr Documented by: Lorazepam (Ativan) 1 mg IVPUSH ONETIME ONE Stop: 07/16/20 03:14 Last Admin: 07/16/20 03:19 Dose: 1 mg Documented by: Potassium Chloride (Klor-Con M20) 40 meq PO ONETIME ONE Stop: 07/16/20 17:01 Last Admin: 07/16/20 17:21 Dose: 40 meq Documented by: - Exam General: Alert, Oriented, Cooperative, No Acute Distress Lungs: Clear to Auscultation, Normal Respiratory Effort Cardiovascular: Regular Rate, Regular Rhythm GI/Abdominal Exam: Normal Bowel Sounds, Soft, Non-Tender, No Distention Extremities: Normal Inspection, No Pedal Edema - Patient Data Lab Results Last 24 hrs: Laboratory Results - last 24 hr 07/16/20 07/16/20 07/17/20 Range/Units 12:16 15:50 05:00 WBC 5.69 (4.0-11.0) K/uL RBC 4.60 (4.50-5.90) M/uL Hgb 14.0 (13.0-17.0) g/dL Hct 42.5 (38.0-50.0) % MCV 92.4 (80.0-98.0) fL MCH 30.4 (27.0-32.0) pg MCHC 32.9 (31.0-37.0) g/dL RDW Std Deviation 43.2 (28.0-62.0) fl RDW Coeff of Guy 13 (11.0-15.0) % Plt Count 196 (150-400) K/uL MPV 11.90 (7.40-12.00) fL Neut % (Auto) 47.5 L (48.0-80.0) % Lymph % (Auto) 34.4 (16.0-40.0) % Austin % (Auto) 15.8 H (0.0-15.0) % Eos % (Auto) 1.9 (0.0-7.0) % Baso % (Auto) 0.4 (0.0-1.5) % Neut # (Auto) 2.7 (1.4-5.7) K/uL Lymph # (Auto) 2.0 (0.6-2.4) K/uL Austin # (Auto) 0.9 H (0.0-0.8) K/uL Eos # (Auto) 0.1 (0.0-0.7) K/uL Baso # (Auto) 0.0 (0.0-0.1) K/uL Nucleated RBC % 0.0 /100WBC Nucleated RBCs # 0 K/uL Sodium 142 (136-148) mmol/L Potassium 3.4 L (3.5-5.1) mmol/L Chloride 104 (98-107) mmol/L Carbon Dioxide 24.5 (21.0-32.0) mmol/L BUN 8 (7.0-18.0) mg/dL Creatinine 1.1 (0.8-1.3) mg/dL Est Cr Clr Drug Dosing 94.31 mL/min Estimated GFR (MDRD) > 60.0 ml/min Glucose 87 (74-106) mg/dL Calcium 8.3 L (8.5-10.1) mg/dL Magnesium 1.8 (1.8-2.4) mg/dL Total Bilirubin (0.2-1.0) mg/dL AST (15-37) IU/L ALT (14-63) IU/L Alkaline Phosphatase (46-116) U/L Total Protein (6.4-8.2) g/dL Albumin (3.4-5.0) g/dL Globulin (2.6-4.0) g/dL Albumin/Globulin Ratio (0.9-1.6) 07/17/20 Range/Units 05:00 WBC (4.0-11.0) K/uL RBC (4.50-5.90) M/uL Hgb (13.0-17.0) g/dL Hct (38.0-50.0) % MCV (80.0-98.0) fL MCH (27.0-32.0) pg MCHC (31.0-37.0) g/dL RDW Std Deviation (28.0-62.0) fl RDW Coeff of Guy (11.0-15.0) % Plt Count (150-400) K/uL MPV (7.40-12.00) fL Neut % (Auto) (48.0-80.0) % Lymph % (Auto) (16.0-40.0) % Austin % (Auto) (0.0-15.0) % Eos % (Auto) (0.0-7.0) % Baso % (Auto) (0.0-1.5) % Neut # (Auto) (1.4-5.7) K/uL Lymph # (Auto) (0.6-2.4) K/uL [place] # (Auto) (0.0-0.8) K/uL Eos # (Auto) (0.0-0.7) K/uL Baso # (Auto) (0.0-0.1) K/uL Nucleated RBC % /100WBC Nucleated RBCs # K/uL Sodium 145 (136-148) mmol/L Potassium 4.1 (3.5-5.1) mmol/L Chloride 109 H (98-107) mmol/L Carbon Dioxide 28.0 (21.0-32.0) mmol/L BUN 6 L (7.0-18.0) mg/dL Creatinine 1.1 (0.8-1.3) mg/dL Est Cr Clr Drug Dosing 94.31 mL/min Estimated GFR (MDRD) > 60.0 ml/min Glucose 92 (74-106) mg/dL Calcium 8.6 (8.5-10.1) mg/dL Magnesium 1.8 (1.8-2.4) mg/dL Total Bilirubin 0.5 (0.2-1.0) mg/dL AST 16 (15-37) IU/L ALT 33 (14-63) IU/L Alkaline Phosphatase 89 (46-116) U/L Total Protein 6.0 L (6.4-8.2) g/dL Albumin 2.8 L (3.4-5.0) g/dL Globulin 3.2 (2.6-4.0) g/dL Albumin/Globulin Ratio 0.9 (0.9-1.6) Result Diagrams: 07/17/20 05:00 07/17/20 05:00 Hema Results Last 24 hrs: Microbiology 07/16/20 10:10 C. difficile Antigen & Toxins A,B - Final Stool / Feces Sepsis Event Note - Evaluation Sepsis Screening Result: No Definite Risk - Focused Exam Vital Signs: Vital Signs Temp Pulse Resp BP Pulse Ox 07/17/20 07:29 36.2 C 81 15 143/80 H 96 07/17/20 04:00 36.2 C 87 18 131/67 96 07/17/20 00:25 35.6 C L 81 18 110/66 97 - Problem List & Annotations (1) Dehydration SNOMED Code(s): 16730912 Code(s): E86.0 - DEHYDRATION Status: Acute (2) Diarrhea SNOMED Code(s): 46142660 Code(s): R19.7 - DIARRHEA, UNSPECIFIED Status: Acute Qualifiers: Diarrhea type: unspecified type Qualified Code(s): R19.7 - Diarrhea, unspecified (3) HTN (hypertension) SNOMED Code(s): 28568178 Code(s): I10 - ESSENTIAL (PRIMARY) HYPERTENSION Status: Acute (4) Tachycardia SNOMED Code(s): 7053090 Code(s): R00.0 - TACHYCARDIA, UNSPECIFIED Status: Acute - Problem List Review Problem List Initiated/Reviewed/Updated: Yes - My Orders Last 24 Hours: My Active Orders 07/16/20 08:00 Enoxaparin [Lovenox] 40 mg SUBCUT Q24H 07/16/20 10:10 STOOL CULTURE/SHIGA TOXIN [MREF] Urgent 07/16/20 11:24 Intake and Output Strict [RC] ASDIRECTED 07/16/20 13:30 Lisinopril/Hydrochlorothiazide [Lisinopril-HCTZ 10-12.5 MG] 1 tab PO DAILY - Plan Plan:: Assessment and Plan: 1. Dehydration secondary to diarrhea: - Continue IV LR's @ 125 cc/hr and will advance to soft diet for lunch. - C diff test negative. Stool cultures pending. 2. Sinus tachycardia likely secondary to dehydration, resolved. 3. HTN: - Continue home medications. 4. DVT prophylaxis: - Lovenox 40 mg subcut qd. <Loren Laguna - Last Filed: 07/18/20 12:03> - General Info Subjective Update: I have seen and evaluated the patient and agree with the residents note unless specified in my note - Patient Data Vitals - Most Recent: Last Vital Signs Temp 36.4 C 07/17/20 16:19 Pulse 81 07/17/20 16:19 Resp 18 07/17/20 16:19 BP 122/78 07/17/20 16:19 Pulse Ox 97 07/17/20 16:19 I&O - Last 24 Hours: Intake & Output 07/17/20 07/18/20 07/18/20 22:59 06:59 14:59 Intake Total 2512 Output Total 1500 Balance 1012 Hema Results Last 24 Hours: Microbiology 07/16/20 10:10 Stool Culture - Preliminary Stool / Feces Shiga Toxin I & II - Final Med Orders - Current: Current Medications Discontinued Medications Acetaminophen (Tylenol) 650 mg PO Q4H PRN PRN Reason: Pain (Mild 1-3)/fever Last Admin: 07/16/20 19:58 Dose: 650 mg Documented by: Al Hydroxide/Mg Hydroxide 15 (ml/ Lidocaine HCl 5 ml) 0 ml PO ONETIME ONE Stop: 07/16/20 03:00 Last Admin: 07/16/20 03:10 Dose: 1 each Documented by: Enoxaparin Sodium (Lovenox) 40 mg SUBCUT Q24H [facility] Last Admin: 07/17/20 09:01 Dose: 40 mg Documented by: Lisinopril/HCTZ (Lisinopril-Hctz 10-12.5 Mg) 1 tab PO DAILY [facility] Last Admin: 07/17/20 09:03 Dose: 1 tab Documented by: Dextrose/Lactated Ringer's (Dextrose 5%-Lactated Ringers) 1,000 mls @ 999 [facility]ls[facility] Last Admin: 07/16/20 00:38 Dose: 999 mls/hr Documented by: Dextrose/Lactated Ringer's (Dextrose 5%-Lactated Ringers) 1,000 mls @ 999 [facility]ls[facility] Last Admin: 07/16/20 01:43 Dose: 999 mls/hr Documented by: Lactated Ringer's (Ringers, Lactated) 1,000 mls @ 150 mls[facility]hr [facility] Lactated Ringer's (Ringers, Lactated) 1,000 mls @ 150 mls/hr IV NOW STA Stop: 07/16/20 10:55 Last Admin: 07/16/20 04:22 Dose: 150 mls/hr Documented by: Lactated Ringer's (Ringers, Lactated) 1,000 mls @ 150 [facility]ls[facility]hr [facility] Last Admin: 07/17/20 16:17 Dose: 150 mls/hr Documented by: Lorazepam (Ativan) 1 mg IVPUSH ONETIME ONE Stop: 07/16/20 03:14 Last Admin: 07/16/20 03:19 Dose: 1 mg Documented by: Ondansetron HCl (Zofran) 4 mg IVPUSH Q4H PRN PRN Reason: Nausea Potassium Chloride (Klor-Con M20) 40 meq PO ONETIME ONE Stop: 07/16/20 17:01 Last Admin: 07/16/20 17:21 Dose: 40 meq Documented by: - Patient Data Result Diagrams: 07/17/20 05:00 07/17/20 05:00 Hema Results Last 24 hrs: Microbiology 07/16/20 10:10 Stool Culture - Preliminary Stool / Feces Shiga Toxin I & II - Final
[2020-07-17] MEDS: Enoxaparin 40 MG/0.4 ML Syringe SUBCUT SCH (09:01)
[2020-07-17] MEDS: Lisinopril/Hydrochlorothiazide 10-12.5 MG Tab PO SCH (09:03)
[2020-07-17 16:19] VITALS: BP 122/78; PULSE 81
--- NOTE | 2020-07-17 17:25 | PCM.DCSUM1 ---
<Casey Leahy - Last Filed: 07/17/20 19:16> Discharge Summary - Hospital Course Free Text/Narrative:: 29-year-old male admitted for dehydration secondary to diarrhea. He has a PMH of HTN. Patient presented complaining of diarrhea of 10+ watery bowel movements daily for approximately 4 days. On admission, Hgb 17.8, sodium 132, d-dimer normal, TSH normal and COVID-19 test negative. Patient was noted to be tachycardic with heart rate ~ 120's. He was started on IV fluids and clear liqui d diet. C diff test negative. Stool cultures pending at time of discharge. Patient's bowel movements decreased and his heart rate improved with IV fluids. He was advanced to soft diet and tolerated it without any difficulty. He was discharged in stable condition. - Discharge Data Discharge Date: 07/17/20 Discharge Disposition: Home, Self-Care 01 Condition: Stable - Referral to Home Health Primary Care Physician: Jeevan Henry MD - Discharge Diagnosis/Problem(s) (1) Dehydration SNOMED Code(s): 33772848 ICD Code: E86.0 - DEHYDRATION Status: Acute (2) Diarrhea SNOMED Code(s): 49325786 ICD Code: R19.7 - DIARRHEA, UNSPECIFIED Status: Acute Qualifiers: Diarrhea type: unspecified type Qualified Code(s): R19.7 - Diarrhea, unspecified (3) HTN (hypertension) SNOMED Code(s): 54994806 ICD Code: I10 - ESSENTIAL (PRIMARY) HYPERTENSION Status: Acute (4) Tachycardia SNOMED Code(s): 8477011 ICD Code: R00.0 - TACHYCARDIA, UNSPECIFIED Status: Acute - Patient Instructions Diet: Mechanical Soft Activity: As Tolerated Notify Provider of: Fever, Increased Pain, Swelling and Redness, Drainage, Nausea and/or Vomiting - Discharge Plan *PRESCRIPTION DRUG MONITORING PROGRAM REVIEWED*: Not Applicable *COPY OF PRESCRIPTION DRUG MONITORING REPORT IN PATIENT DIRK: Not Applicable Prescriptions/Med Rec: Ondansetron [Zofran] 4 mg PO Q4H PRN 3 Days #18 tab PRN Reason: Nausea Home Medications: Home Meds Lisinopril/Hydrochlorothiazide [Lisinopril-Hctz 10-12.5 mg Tab] 10 - 12.5 mg PO DAILY 08/28/17 [History] Ondansetron [Zofran] 4 mg PO Q4H PRN 3 Days #18 tab 07/17/20 [Rx] Oxygen Therapy Mode: Room Air Patient Handouts: Diarrhea, Adult, Ondansetron tablets, Dehydration, Adult, [id number], Nausea and Vomiting, Adult Forms: ED Department Discharge Referrals: Jeevan Henry MD [Primary Care Provider] - 07/25/20 10:15 am - Discharge Summary/Plan Comment DC Time >30 min.: No - Patient Data Vitals - Most Recent: Last Vital Signs Temp 36.4 C 07/17/20 16:19 Pulse 81 07/17/20 16:19 Resp 18 07/17/20 16:19 BP 122/78 07/17/20 16:19 Pulse Ox 97 07/17/20 16:19 Weight - Most Recent: 99.79 kg I&O - Last 24 hours: Intake & Output 07/17/20 07/17/20 07/17/20 06:59 14:59 22:59 Intake Total 3719 1040 2512 Output Total 1200 1250 1500 Balance 2519 -210 1012 Lab Results - Last 24 hrs: Laboratory Results - last 24 hr 07/17/20 07/17/20 Range/Units 05:00 05:00 WBC 5.69 (4.0-11.0) K/uL RBC 4.60 (4.50-5.90) M/uL Hgb 14.0 (13.0-17.0) g/dL Hct 42.5 (38.0-50.0) % MCV 92.4 (80.0-98.0) fL MCH 30.4 (27.0-32.0) pg MCHC 32.9 (31.0-37.0) g/dL RDW Std Deviation 43.2 (28.0-62.0) fl RDW Coeff of Guy 13 (11.0-15.0) % Plt Count 196 (150-400) K/uL MPV 11.90 (7.40-12.00) fL Neut % (Auto) 47.5 L (48.0-80.0) % Lymph % (Auto) 34.4 (16.0-40.0) % Curry % (Auto) 15.8 H (0.0-15.0) % Eos % (Auto) 1.9 (0.0-7.0) % Baso % (Auto) 0.4 (0.0-1.5) % Neut # (Auto) 2.7 (1.4-5.7) K/uL Lymph # (Auto) 2.0 (0.6-2.4) K/uL Curry # (Auto) 0.9 H (0.0-0.8) K/uL Eos # (Auto) 0.1 (0.0-0.7) K/uL Baso # (Auto) 0.0 (0.0-0.1) K/uL Nucleated RBC % 0.0 /100WBC Nucleated RBCs # 0 K/uL Sodium 145 (136-148) mmol/L Potassium 4.1 (3.5-5.1) mmol/L Chloride 109 H (98-107) mmol/L Carbon Dioxide 28.0 (21.0-32.0) mmol/L BUN 6 L (7.0-18.0) mg/dL Creatinine 1.1 (0.8-1.3) mg/dL Est Cr Clr Drug Dosing 94.31 mL/min Estimated GFR (MDRD) > 60.0 ml/min Glucose 92 (74-106) mg/dL Calcium 8.6 (8.5-10.1) mg/dL Magnesium 1.8 (1.8-2.4) mg/dL Total Bilirubin 0.5 (0.2-1.0) mg/dL AST 16 (15-37) IU/L ALT 33 (14-63) IU/L Alkaline Phosphatase 89 (46-116) U/L Total Protein 6.0 L (6.4-8.2) g/dL Albumin 2.8 L (3.4-5.0) g/dL Globulin 3.2 (2.6-4.0) g/dL Albumin/Globulin Ratio 0.9 (0.9-1.6) PARESH Results - Last 24 hrs: Microbiology 07/16/20 10:10 Shiga Toxin I & II - Final Stool / Feces 07/16/20 10:10 C. difficile Antigen & Toxins A,B - Final Stool / Feces Med Orders - Current: Current Medications Acetaminophen (Tylenol) 650 mg PO Q4H PRN PRN Reason: Pain (Mild 1-3)/fever Last Admin: 07/16/20 19:58 Dose: 650 mg Documented by: Enoxaparin Sodium (Lovenox) 40 mg SUBCUT Q24H [facility] Last Admin: 07/17/20 09:01 Dose: 40 mg Documented by: Lisinopril/HCTZ (Lisinopril-Hctz 10-12.5 Mg) 1 tab PO DAILY [facility] Last Admin: 07/17/20 09:03 Dose: 1 tab Documented by: Lactated Ringer's (Ringers, Lactated) 1,000 mls @ 150 mls/hr IV ASDIRECTED [facility] Last Admin: 07/17/20 16:17 Dose: 150 mls/hr Documented by: Ondansetron HCl (Zofran) 4 mg IVPUSH Q4H PRN PRN Reason: Nausea Discontinued Medications Al Hydroxide/Mg Hydroxide 15 (ml/ Lidocaine HCl 5 ml) 0 ml PO ONETIME ONE Stop: 07/16/20 03:00 Last Admin: 07/16/20 03:10 Dose: 1 each Documented by: Dextrose/Lactated Ringer's (Dextrose 5%-Lactated Ringers) 1,000 mls @ 999 mls/hr IV ASDIRECTED [facility] Last Admin: 07/16/20 00:38 Dose: 999 mls/hr Documented by: Dextrose/Lactated Ringer's (Dextrose 5%-Lactated Ringers) 1,000 mls @ 999 mls/hr IV ASDIRECTED [facility] Last Admin: 07/16/20 01:43 Dose: 999 mls/hr Documented by: Lactated Ringer's (Ringers, Lactated) 1,000 mls @ 150 mls/hr IV ASDIRECTED [facility] Lactated Ringer's (Ringers, Lactated) 1,000 mls @ 150 mls/hr IV NOW STA Stop: 07/16/20 10:55 Last Admin: 07/16/20 04:22 Dose: 150 mls/hr Documented by: Lorazepam (Ativan) 1 mg IVPUSH ONETIME ONE Stop: 07/16/20 03:14 Last Admin: 07/16/20 03:19 Dose: 1 mg Documented by: Potassium Chloride (Klor-Con M20) 40 meq PO ONETIME ONE Stop: 07/16/20 17:01 Last Admin: 07/16/20 17:21 Dose: 40 meq Documented by: <Jase,Hooria - Last Filed: 07/18/20 11:59> Discharge Summary - Hospital Course Free Text/Narrative:: I have seen and evaluated the patient and agree with the residents note unless specified in my note - Referral to Home Health Primary Care Physician: Jeevan Henry MD - Patient Data Vitals - Most Recent: Last Vital Signs Temp 36.4 C 07/17/20 16:19 Pulse 81 07/17/20 16:19 Resp 18 07/17/20 16:19 BP 122/78 07/17/20 16:19 Pulse Ox 97 07/17/20 16:19 I&O - Last 24 hours: Intake & Output 07/17/20 07/18/20 07/18/20 22:59 06:59 14:59 Intake Total 2512 Output Total 1500 Balance 1012 PARESH Results - Last 24 hrs: Microbiology 07/16/20 10:10 Stool Culture - Preliminary Stool / Feces Shiga Toxin I & II - Final Med Orders - Current: Current Medications Discontinued Medications Acetaminophen (Tylenol) 650 mg PO Q4H PRN PRN Reason: Pain (Mild 1-3)/fever Last Admin: 07/16/20 19:58 Dose: 650 mg Documented by: Al Hydroxide/Mg Hydroxide 15 (ml/ Lidocaine HCl 5 ml) 0 ml PO ONETIME ONE Stop: 07/16/20 03:00 Last Admin: 07/16/20 03:10 Dose: 1 each Documented by: Enoxaparin Sodium (Lovenox) 40 mg SUBCUT Q24H [facility] Last Admin: 07/17/20 09:01 Dose: 40 mg Documented by: Lisinopril/HCTZ (Lisinopril-Hctz 10-12.5 Mg) 1 tab PO DAILY [facility] Last Admin: 07/17/20 09:03 Dose: 1 tab Documented by: Dextrose/Lactated Ringer's (Dextrose 5%-Lactated Ringers) 1,000 mls @ 999 mls/hr IV ASDIRECTED [facility] Last Admin: 07/16/20 00:38 Dose: 999 mls/hr Documented by: Dextrose/Lactated Ringer's (Dextrose 5%-Lactated Ringers) 1,000 mls @ 999 mls/hr IV ASDIRECTED [facility] Last Admin: 07/16/20 01:43 Dose: 999 mls/hr Documented by: Lactated Ringer's (Ringers, Lactated) 1,000 mls @ 150 mls/hr IV ASDIRECTED [facility] Lactated Ringer's (Ringers, Lactated) 1,000 mls @ 150 mls/hr IV NOW STA Stop: 07/16/20 10:55 Last Admin: 07/16/20 04:22 Dose: 150 mls/hr Documented by: Lactated Ringer's (Ringers, Lactated) 1,000 mls @ 150 mls/hr IV ASDIRECTED [facility] Last Admin: 07/17/20 16:17 Dose: 150 mls/hr Documented by: Lorazepam (Ativan) 1 mg IVPUSH ONETIME ONE Stop: 07/16/20 03:14 Last Admin: 07/16/20 03:19 Dose: 1 mg Documented by: Ondansetron HCl (Zofran) 4 mg IVPUSH Q4H PRN PRN Reason: Nausea Potassium Chloride (Klor-Con M20) 40 meq PO ONETIME ONE Stop: 07/16/20 17:01 Last Admin: 07/16/20 17:21 Dose: 40 meq Documented by:
== END 2020-07-17 18:01 | disposition home or self-care (01) ==
LOC: MW.ED 00:01 → MW.MS 05:05
PROVIDERS: ADMIT Internal Medicine; ATTEND Internal Medicine
DX: E86.0 Dehydration (principal); R19.7 Diarrhea, unspecified; I10 Essential (primary) hypertension; R00.0 Tachycardia, unspecified; Z20.822 Contact with and (suspected) exposure to COVID-19; Z79.899 Other long term (current) drug therapy
CPT/HCPCS: 36415; 80048; 80053; 83735; 84439; 84443; 85025; 85379; 87045; 87046; 87324; 87449; 87635; 87899; 93005; 96374; 99285; A9270; J1650; J2060; J7120; J7121; 93010; 99217; 99219; 99284; U0002

== ENCOUNTER 2021-05-30 07:42 | Emergency (ER) | payer BC ==
[2021-05-30 08:36] VITALS: BP 143/77; PULSE 112
== END 2021-05-30 08:36 | disposition home or self-care (01) ==
LOC: MW.ED 07:42
DX: I10 Essential (primary) hypertension (principal); Z79.899 Other long term (current) drug therapy
CPT/HCPCS: 99283

== ENCOUNTER 2024-02-12 10:39 | Emergency (ER) | payer BC ==
[2024-02-12] MEDS: Ibuprofen 600 MG Tab PO ONE (11:17)
[2024-02-12 14:14] VITALS: BP 132/84; PULSE 81
== END 2024-02-12 14:13 | disposition home or self-care (01) ==
LOC: MW.ED 10:39
DX: M79.604 Pain in right leg (principal); I10 Essential (primary) hypertension
CPT/HCPCS: 73590; 93971; 99284; A9270